=== PATIENT | female | born 1985 | race Caucasian/White ===

== ENCOUNTER 2018-10-15 07:40 | Emergency (ER) | payer BC, OTHER ==
[2018-10-15] MEDS ORDERED: Acetaminophen 500 MG TAB ONE (08:42)
== END 2018-10-15 09:09 | disposition home or self-care (01) ==
LOC: MADERS 07:40
DX: J10.1 Influenza due to other identified influenza virus with other respiratory manifestations (principal); F17.210 Nicotine dependence, cigarettes, uncomplicated; Z87.442 Personal history of urinary calculi; Z79.899 Other long term (current) drug therapy
CPT/HCPCS: 87804; 99283